=== PATIENT | female | born 1990 | race Caucasian/White ===

== ENCOUNTER 2017-02-23 15:10 | Emergency (ER) | payer MEDICAID ==
[~2017-02-23] VITALS: Ht 160 cm; Wt 54.4 kg
[~2017-02-23 15:10] MED LIST: ABILIFY10 MG PO; ADDERALL5 MG; AMOXICILLIN500 MG PO; ANAPROX DS550 MG PO; ATIVAN0.5 MG PO; ATIVAN1 MG PO; AUGMENTIN 875 M1 TA1 PO; BACTRIM DS 8001 TA1 PO; BENADRYL25 M1 PO; BENTYL10 MG PO; BIAXIN500 MG PO; BIRTH CONTROL1 EAC1 PO; BUSPAR5 MG PO; CIPRO250 MG PO; CIPRODEX 0.3%-7.5 ML OT; CIPROFLOXACIN500 MG PO; CLINDAMYCIN HC300 MG PO; CORDROL20 MG PO; CYCLOBENZAPRINE5 MG PO; DAYPRO600 M1 PO; DOXYCYCLINE100 M2 PO; FIORICET 325 MG1 TAB PO; FLAGYL500 MG PO; FLEXERIL10 MG PO; GEODON60 MG PO; GEODON80 MG; GEODON80 MG PO; HYDROCODONE BIT1 T11 PO; KEFLEX500 MG PO; LAMICTAL25 MG PO; LIDEX 0.05% CRE15 GM T; LIDEX0.05% T; LIDOCAINE VISC100 ML MM; MOTRIN800 MG PO; NAPROSYN500 MG PO; NKHM; NORCO 325 MG-51 TAB PO; PEPCID20 MG PO; PREDNICOT20 MG PO; PREV ADMIT HOME MEDS; PRILOSEC20 MG PO; PRILOSEC40 MG PO; PROTONIX40 MG PO; PROVENTIL0.09 MG/AC IH; REMERON15 MG PO; TORADOL10 MG PO; TRAMADOL HCL50 MG PO; TRAZODONE100 MG PO; TRIMOX500 MG PO; TYLENOL W/CODEI1 TA2 PO; ULTRAM50 MG PO; VALIUM10 MG PO; VALIUM2 MG PO; VICODIN 5/500 505 MG PO; VISTARIL50 MG PO; VOLTAREN50 M1 PO; VOLTAREN75 MG PO; XANAX0.25 MG; XANAX1 MG; XANAX1 MG PO; ZANTAC 150150 MG PO; ZITHROMAX Z PA250 MG PO; ZITHROMAX250 MG PO; ZOFRAN ODT4 MG PO; ZOFRAN ODT4 MG SL; ZOLOFT50 MG; ZYRTEC10 M1 PO; Zofran4 MG PO
[2017-02-23] MEDS ORDERED: TYLENOL WITH CO1 TA1 PO (15:29)
[2017-02-23] MEDS ORDERED: CLINDAMYCIN HC300 MG PO (15:29)
== END 2017-02-23 15:18 | disposition home or self-care (01) ==
LOC: ED 15:10
DX: K04.7 Periapical abscess without sinus (principal); F17.200 Nicotine dependence, unspecified, uncomplicated; Z88.0 Allergy status to penicillin; Z88.1 Allergy status to other antibiotic agents; Z88.6 Allergy status to analgesic agent; Z91.040 Latex allergy status

== ENCOUNTER 2017-05-13 14:16 | Emergency (ER) | payer MEDICAID ==
[~2017-05-13] VITALS: Ht 157.4 cm; Wt 54.4 kg
[~2017-05-13 14:16] MED LIST changes: +TYLENOL WITH CO1 TA1 PO
[2017-05-13] MEDS ORDERED: PERIDEX118 ML MM (14:54)
[2017-05-13] MEDS ORDERED: TYLENOL W/CODEI1 TA4 PO (15:12)
[2017-05-13] MEDS ORDERED: FLAGYL500 MG PO (15:12)
== END 2017-05-13 21:38 | disposition home or self-care (01) ==
LOC: ED 14:16
DX: K02.9 Dental caries, unspecified (principal); F17.200 Nicotine dependence, unspecified, uncomplicated; G89.29 Other chronic pain; K21.9 Gastro-esophageal reflux disease without esophagitis; Z88.0 Allergy status to penicillin; Z88.6 Allergy status to analgesic agent; Z88.1 Allergy status to other antibiotic agents; Z91.040 Latex allergy status

== ENCOUNTER 2017-07-25 19:51 | Emergency (ER) | payer MEDICAID ==
[~2017-07-25] VITALS: Ht 157.4 cm; Wt 54.4 kg
[~2017-07-25 19:51] MED LIST changes: +PERIDEX118 ML MM; +TYLENOL W/CODEI1 TA4 PO
[2017-07-25] MEDS ORDERED: CLINDAMYCIN HC300 MG PO (20:25)
== END 2017-07-25 20:43 | disposition home or self-care (01) ==
LOC: ED 19:51
DX: K04.7 Periapical abscess without sinus (principal); K08.89 Other specified disorders of teeth and supporting structures; F17.200 Nicotine dependence, unspecified, uncomplicated; Z88.0 Allergy status to penicillin; Z88.1 Allergy status to other antibiotic agents; Z88.5 Allergy status to narcotic agent; Z91.040 Latex allergy status

== ENCOUNTER 2017-12-20 09:56 | Emergency (ER) | payer MEDICAID ==
[~2017-12-20] VITALS: Ht 157.4 cm; Wt 59.9 kg
== END 2017-12-20 12:28 | disposition home or self-care (01) ==
LOC: ED 09:56
DX: S00.33XA Contusion of nose, initial encounter (principal); S09.8XXA Other specified injuries of head, initial encounter; Z88.0 Allergy status to penicillin; Z88.1 Allergy status to other antibiotic agents; Z91.040 Latex allergy status; Z88.6 Allergy status to analgesic agent; Z88.8 Allergy status to other drugs, medicaments and biological substances; Y04.0XXA Assault by unarmed brawl or fight, initial encounter; Y93.89 Activity, other specified; Y92.89 Other specified places as the place of occurrence of the external cause; Y99.8 Other external cause status

== ENCOUNTER 2018-01-17 00:04 | Emergency (ER) | payer MEDICAID ==
[~2018-01-17] VITALS: Ht 167.6 cm; Wt 65.8 kg
[2018-01-17 00:49] LABS: BASO # 0.1 10*3/uL (0.0-0.1); BASO % 0.6 % (0.0-1.0); EOS # 0.8 10*3/uL (0.0-0.4); EOS % 7.6 % (1.0-4.0); HEMOGLOBIN 15.3 g/dl (12.0-16.0); LYMPH % 36.8 % (27.0-41.0); MEAN CELL VOLUME 96.2 fl (81.0-99.0); MEAN CORPUSCULAR HGB 32.7 pg (27.0-31.0); MEAN PLATELET VOLUME 12.1 fl (9.6-12.3); MONO # 0.5 10*3/uL (0.1-1.0); MONO % 4.2 % (3.0-9.0); NEUT # 5.6 10*3/uL (2.3-7.9); NEUT % 50.7 % (47.0-73.0); PLATELET COUNT AUTOMATED 203 10*3/uL (130-400); RED BLOOD COUNT 4.68 10*6/uL (4.10-5.10); RED CELL DISTRI WIDTH 13.7 % (0-14.5)
[2018-01-17 00:56] LABS: ALBUMIN 3.7 gm/dl (3.1-4.5); ALKALINE PHOSPHATASE 46 U/L (45-117); B-hCG (QUALITATIVE) NEGATIVE (NEGATIVE); BUN 5 mg/dl (7-24); CHLORIDE 109 mmol/L (98-107); CPK 96 U/L (26-192); CREATININE 0.97 mg/dL (0.55-1.02); LIPASE 101 U/L (73-393); POTASSIUM 3.5 mmol/L (3.5-5.1); SGOT/AST 18 IU/L (3-35); SGPT/ALT 19 U/L (12-78); SODIUM 141 mmol/L (136-145); TOTAL PROTEIN 8.1 gm/dL (6.4-8.2)
[2018-01-17 00:57] LABS: TROPONIN I < 0.015 ng/ml (<0.045)
[2018-01-17 00:58] LABS: BILIRUBIN NEGATIVE (NEGATIVE); BLOOD NEGATIVE (NEGATIVE); CLARITY CLEAR (CLEAR); COLOR YELLOW (YELLOW); GLUCOSE NEGATIVE (NEGATIVE); KETONE NEGATIVE (NEGATIVE); LEUKO ESTERASE NEGATIVE (NEGATIVE); NITRITE NEGATIVE (NEGATIVE); PH 6.5 (5.0-9.0); SPECIFIC GRAVITY <= 1.005 (1.005-1.030); UROBILINOGEN 0.2 E.U./dl (0.2-1.0)
[2018-01-17 01:02] LABS: URINE AMPHETAMINES < 1000 (1000ng/ml); URINE BARBITURATES < 200 (200ng/ml); URINE BENZODIAZEPINES > 200 (200ng/ml); URINE CANNABINOIDS (THC) > 50 (50ng/ml); URINE COCAINE < 300 (300ng/ml); URINE METHADONE < 300 (300ng/ml); URINE OPIATES < 300 (300ng/ml); URINE PHENCYCLIDINE < 25 (25ng/ml)
[2018-01-17 01:05] LABS: BACTERIA TRACE; RBC 0-2 rbc/hpf (0-2); WBC 0-2 wbc/hpf (0-5)
== END 2018-01-17 05:31 | disposition home or self-care (01) ==
LOC: ED 00:04
PROVIDERS: Emergency Medicine Emergency Medical Services
DX: T42.4X1A Poisoning by benzodiazepines, accidental (unintentional), initial encounter (principal); G89.29 Other chronic pain; K21.9 Gastro-esophageal reflux disease without esophagitis; Y92.89 Other specified places as the place of occurrence of the external cause; Z88.0 Allergy status to penicillin; Z88.1 Allergy status to other antibiotic agents; Z88.5 Allergy status to narcotic agent; Z91.040 Latex allergy status

== ENCOUNTER 2018-04-04 09:34 | Emergency (ER) | payer SELFPAY ==
[~2018-04-04] VITALS: Ht 157.4 cm; Wt 63.5 kg
[2018-04-04] MEDS ORDERED: Nizoral 2%15 GM T (10:16)
== END 2018-04-04 10:30 | disposition home or self-care (01) ==
LOC: ED 09:34
DX: B35.4 Tinea corporis (principal); Z88.0 Allergy status to penicillin; Z88.1 Allergy status to other antibiotic agents; Z88.6 Allergy status to analgesic agent; Z91.040 Latex allergy status

== ENCOUNTER 2019-02-10 16:43 | Emergency (ER) | payer SELFPAY ==
[~2019-02-10] VITALS: Ht 157.4 cm; Wt 59.0 kg
[~2019-02-10 16:43] MED LIST changes: +Nizoral 2%15 GM T
[2019-05-16] MEDS ORDERED: PRENATAL TABLE1 EAC2 PO (09:33)
== END 2019-02-10 19:23 ==
LOC: ED 16:43
DX: T14.8XXA Other injury of unspecified body region, initial encounter (principal); M54.5 Low back pain; M25.572 Pain in left ankle and joints of left foot; M25.571 Pain in right ankle and joints of right foot; F17.200 Nicotine dependence, unspecified, uncomplicated; Z88.0 Allergy status to penicillin; Z88.1 Allergy status to other antibiotic agents; Z88.6 Allergy status to analgesic agent; Z91.040 Latex allergy status; W10.8XXA Fall (on) (from) other stairs and steps, initial encounter; Y93.01 Activity, walking, marching and hiking; Y92.89 Other specified places as the place of occurrence of the external cause; Y99.8 Other external cause status

== ENCOUNTER 2019-08-20 16:42 | Emergency (ER) | payer SELFPAY ==
[~2019-08-20] VITALS: Ht 157.4 cm; Wt 67.1 kg
[~2019-08-20 16:42] MED LIST changes: +PRENATAL TABLE1 EAC2 PO
[2019-08-20 17:51] LABS: BILIRUBIN NEGATIVE (NEGATIVE); BLOOD NEGATIVE (NEGATIVE); CLARITY CLEAR (CLEAR); COLOR YELLOW (YELLOW); GLUCOSE NEGATIVE (NEGATIVE); KETONE NEGATIVE (NEGATIVE); LEUKO ESTERASE NEGATIVE (NEGATIVE); NITRITE NEGATIVE (NEGATIVE); SPECIFIC GRAVITY 1.015 (1.005-1.030); UROBILINOGEN 0.2 E.U./dl (0.2-1.0)
[2019-08-20 18:12] LABS: EPITHELIAL CELLS 31-40
== END 2019-08-20 18:20 | disposition left against medical advice (07) ==
LOC: ED 16:42
PROVIDERS: Physician Assistant
DX: Z34.92 Encounter for supervision of normal pregnancy, unspecified, second trimester (principal); F32.9 Major depressive disorder, single episode, unspecified; F41.9 Anxiety disorder, unspecified; F17.200 Nicotine dependence, unspecified, uncomplicated; Z88.0 Allergy status to penicillin; Z88.1 Allergy status to other antibiotic agents; Z88.8 Allergy status to other drugs, medicaments and biological substances; Z88.6 Allergy status to analgesic agent; Z91.040 Latex allergy status; Z79.899 Other long term (current) drug therapy

== ENCOUNTER → 2019-10-25 | Outpatient (CLI) | payer MEDICAID | END | disposition home or self-care (01) | LOC: LAB 07:56 | DX: R73.02 Impaired glucose tolerance (oral) (principal) ==

== ENCOUNTER 2020-03-17 11:33 | Emergency (ER) | payer OTHER ==
[~2020-03-17] VITALS: Ht 157.4 cm; Wt 63.5 kg
== END 2020-03-17 14:26 | disposition home or self-care (01) ==
LOC: ED 11:33
DX: S20.212A Contusion of left front wall of thorax, initial encounter (principal); F17.200 Nicotine dependence, unspecified, uncomplicated; Z88.8 Allergy status to other drugs, medicaments and biological substances; Z91.040 Latex allergy status; Z79.899 Other long term (current) drug therapy; X58.XXXA Exposure to other specified factors, initial encounter; Y93.89 Activity, other specified; Y92.89 Other specified places as the place of occurrence of the external cause; Y99.8 Other external cause status

== ENCOUNTER 2020-06-17 19:54 | Emergency (ER) | payer OTHER ==
[~2020-06-17] VITALS: Ht 157.4 cm; Wt 62.6 kg
[2020-06-17] MEDS ORDERED: CLINDAMYCIN HC300 MG PO (20:42)
== END 2020-06-17 22:30 | disposition home or self-care (01) ==
LOC: ED 19:54
DX: S63.602A Unspecified sprain of left thumb, initial encounter (principal); K02.9 Dental caries, unspecified; Z88.0 Allergy status to penicillin; Z88.1 Allergy status to other antibiotic agents; Z88.6 Allergy status to analgesic agent; Z91.040 Latex allergy status; Z88.8 Allergy status to other drugs, medicaments and biological substances; W20.8XXA Other cause of strike by thrown, projected or falling object, initial encounter; Y93.89 Activity, other specified; Y92.89 Other specified places as the place of occurrence of the external cause; Y99.8 Other external cause status

== ENCOUNTER 2021-04-01 12:18 | Emergency (ER) | payer OTHER ==
[~2021-04-01] VITALS: Ht 157.4 cm; Wt 52.2 kg
[2021-04-01] MEDS ORDERED: SEPTDS PO (13:33)
[2021-04-01] MEDS ORDERED: HYDROCODONE-AC1 EAC1 PO (13:33)
[2021-04-01] MEDS ORDERED: CLINDAMYCIN HC300 MG PO (13:41)
== END 2021-04-01 14:18 | disposition home or self-care (01) ==
LOC: ED 12:18
DX: O99.711 Diseases of the skin and subcutaneous tissue complicating pregnancy, first trimester (principal); L72.3 Sebaceous cyst; Z88.0 Allergy status to penicillin; Z3A.01 Less than 8 weeks gestation of pregnancy; Z88.1 Allergy status to other antibiotic agents; Z88.6 Allergy status to analgesic agent; Z91.040 Latex allergy status; Z88.8 Allergy status to other drugs, medicaments and biological substances; Z79.2 Long term (current) use of antibiotics

== ENCOUNTER → 2021-04-18 | Outpatient (CLI) | payer OTHER ==
[~2021-04-18] MED LIST changes: +HYDROCODONE-AC1 EAC1 PO; +SEPTDS PO
== END | disposition home or self-care (01) ==
LOC: US 13:25
PROVIDERS: ATTEND Nurse Practitioner Women's Health
DX: O43.891 Other placental disorders, first trimester (principal); O34.81 Maternal care for other abnormalities of pelvic organs, first trimester; N83.11 Corpus luteum cyst of right ovary; Z3A.12 12 weeks gestation of pregnancy

== ENCOUNTER → 2021-06-12 | Outpatient (CLI) | payer OTHER ==
[2021-06-12 14:03] LABS: BASO # 0.1 10*3/uL (0.0-0.1); BASO % 0.4 % (0.0-1.0); EOS # 0.3 10*3/uL (0.0-0.4); EOS % 2.5 % (1.0-4.0); HEMATOCRIT 36.7 % (37.0-47.0); LYMPH # 2.8 10*3/uL (1.3-4.4); LYMPH % 23.9 % (27.0-41.0); MEAN CELL VOLUME 97.9 fl (81.0-99.0); MEAN CORPUSCULAR HGB 32.3 pg (27.0-31.0); MEAN PLATELET VOLUME 11.8 fl (9.6-12.3); MONO # 0.5 10*3/uL (0.1-1.0); MONO % 4.2 % (3.0-9.0); NEUT # 7.9 10*3/uL (2.3-7.9); NEUT % 68.3 % (47.0-73.0); PLATELET COUNT AUTOMATED 212 10*3/uL (130-400); RED BLOOD COUNT 3.75 10*6/uL (4.10-5.10); RED CELL DISTRI WIDTH 13.2 % (0-14.5); WHITE BLOOD COUNT 11.6 10*3/uL (4.8-10.8)
[2021-06-12 15:41] LABS: BILIRUBIN Negative (Negative); BLOOD Negative (Negative); CLARITY Clear (Clear); COLOR Yellow (Yellow); GLUCOSE Negative (Negative); KETONE Negative (Negative); LEUKO ESTERASE Negative (Negative); NITRITE Negative (Negative); SPECIFIC GRAVITY <= 1.005 (1.001-1.030); UROBILINOGEN 0.2 E.U./dl (0.0-1.0)
[2021-06-12 16:10] LABS: BACTERIA TRACE
[2021-06-13 08:08] LABS: HEPATITIS B SURFACE AG Negative (Negative)
[2021-06-13 17:07] LABS: VARICELLA-ZOSTER IGG 870 index (Immune >165)
== END | disposition home or self-care (01) ==
LOC: LAB 13:28
PROVIDERS: ATTEND Nurse Practitioner Women's Health
DX: Z34.81 Encounter for supervision of other normal pregnancy, first trimester (principal); Z3A.10 10 weeks gestation of pregnancy

== ENCOUNTER 2021-11-09 11:58 | Emergency (ER) | payer OTHER ==
[~2021-11-09] VITALS: Ht 157.4 cm; Wt 69.9 kg
[2021-11-09 12:53] LABS: BASO % 0.4 % (0.0-1.0); EOS # 0.2 10*3/uL (0.0-0.4); HEMATOCRIT 37.1 % (37.0-47.0); LYMPH # 1.7 10*3/uL (1.3-4.4); LYMPH % 15.4 % (27.0-41.0); MEAN CORPUSCULAR HGB 31.6 pg (27.0-31.0); MEAN PLATELET VOLUME 10.9 fl (9.6-12.3); MONO # 0.5 10*3/uL (0.1-1.0); MONO % 4.2 % (3.0-9.0); NEUT # 8.6 10*3/uL (2.3-7.9); NEUT % 77.7 % (47.0-73.0); PLATELET COUNT AUTOMATED 228 10*3/uL (130-400); RED BLOOD COUNT 3.99 10*6/uL (4.10-5.10); RED CELL DISTRI WIDTH 14.3 % (0-14.5)
[2021-11-09 13:09] LABS: ALBUMIN 2.8 gm/dl (3.1-4.5); ALKALINE PHOSPHATASE 112 U/L (45-117); BUN 7 mg/dl (7-24); CHLORIDE 109 mmol/L (98-107); CREATININE 0.69 mg/dL (0.55-1.02); POTASSIUM 3.7 mmol/L (3.5-5.1); SGOT/AST 19 IU/L (3-35); SGPT/ALT 19 U/L (12-78); SODIUM 139 mmol/L (136-145); TOTAL PROTEIN 7.1 gm/dL (6.4-8.2)
[2021-11-09 15:30] LABS: BILIRUBIN Negative (Negative); BLOOD 3+ (Negative); CLARITY Turbid (Clear); COLOR Red (Yellow); GLUCOSE Negative (Negative); KETONE Trace (Negative); LEUKO ESTERASE 3+ (Negative); NITRITE Negative (Negative); PH 5.5 (4.5-8.0); SPECIFIC GRAVITY 1.015 (1.001-1.030)
[2021-11-09 15:37] LABS: BACTERIA 2+; EPITHELIAL CELLS 0-2; MUCOUS TRACE; RBC TNTC rbc/hpf (0-2); WBC TNTC wbc/hpf (0-5)
== END 2021-11-09 15:47 | disposition home or self-care (01) ==
LOC: ED 11:58
PROVIDERS: Emergency Medicine; Physician Assistant
DX: O90.89 Other complications of the puerperium, not elsewhere classified (principal); N89.8 Other specified noninflammatory disorders of vagina; F17.200 Nicotine dependence, unspecified, uncomplicated; Z88.0 Allergy status to penicillin; Z88.1 Allergy status to other antibiotic agents; Z91.040 Latex allergy status; Z88.6 Allergy status to analgesic agent; Z88.8 Allergy status to other drugs, medicaments and biological substances

== ENCOUNTER 2022-04-15 08:05 | Emergency (ER) | payer OTHER ==
[~2022-04-15] VITALS: Ht 157.4 cm; Wt 59.0 kg
[2022-04-15] MEDS ORDERED: HYDROCODONE-AC1 EAC1 PO (08:32)
[2022-04-15] MEDS ORDERED: VIBRA-TAB100 MG PO (08:32)
== END 2022-04-15 09:10 | disposition home or self-care (01) ==
LOC: ED 08:05
DX: L02.214 Cutaneous abscess of groin (principal); Z88.0 Allergy status to penicillin; Z88.1 Allergy status to other antibiotic agents; Z91.040 Latex allergy status; Z88.8 Allergy status to other drugs, medicaments and biological substances

== ENCOUNTER 2022-06-12 11:17 | Emergency (ER) | payer OTHER ==
[~2022-06-12] VITALS: Wt 52.2 kg
[~2022-06-12 11:17] MED LIST changes: +VIBRA-TAB100 MG PO
== END 2022-06-12 13:45 | disposition left against medical advice (07) ==
LOC: ED 11:17
DX: R10.9 Unspecified abdominal pain (principal); Z53.21 Procedure and treatment not carried out due to patient leaving prior to being seen by health care provider

== ENCOUNTER 2023-06-29 14:36 | Emergency (ER) | payer MEDICAID ==
[~2023-06-29] VITALS: Ht 157.4 cm; Wt 61.2 kg
[2023-06-29] MEDS ORDERED: CLINDAMYCIN HC300 MG PO (16:50)
== END 2023-06-29 16:46 | disposition home or self-care (01) ==
LOC: ED 14:36
DX: K02.9 Dental caries, unspecified (principal); F41.9 Anxiety disorder, unspecified; K21.9 Gastro-esophageal reflux disease without esophagitis; Z88.0 Allergy status to penicillin; Z88.1 Allergy status to other antibiotic agents; Z88.6 Allergy status to analgesic agent; Z91.040 Latex allergy status; Z88.8 Allergy status to other drugs, medicaments and biological substances

== ENCOUNTER 2023-07-19 12:23 | Emergency (ER) | payer MEDICAID ==
[~2023-07-19] VITALS: Ht 154.9 cm; Wt 61.2 kg
[2023-07-19] MEDS ORDERED: ONDANSETRON4 MG SL (13:32)
[2023-07-19] MEDS ORDERED: CLINDAMYCIN HC300 MG PO (13:32)
== END 2023-07-19 13:50 | disposition home or self-care (01) ==
LOC: ED 12:23
DX: K04.7 Periapical abscess without sinus (principal); R51.9 Headache, unspecified; F41.9 Anxiety disorder, unspecified; F31.9 Bipolar disorder, unspecified; Z88.0 Allergy status to penicillin; Z88.1 Allergy status to other antibiotic agents; Z91.040 Latex allergy status; Z88.6 Allergy status to analgesic agent; Z88.8 Allergy status to other drugs, medicaments and biological substances; Z98.890 Other specified postprocedural states

== ENCOUNTER 2023-10-27 14:21 | Emergency (ER) | payer MEDICAID ==
[~2023-10-27] VITALS: Ht 154.9 cm; Wt 61.2 kg
[~2023-10-27 14:21] MED LIST changes: +ONDANSETRON4 MG SL
[2023-10-27 15:00] LABS: BASO # 0.1 10*3/uL (0.0-0.1); BASO % 1.3 % (0.0-1.0); EOS # 0.9 10*3/uL (0.0-0.4); EOS % 9.4 % (1.0-4.0); HEMATOCRIT 43.1 % (37.0-47.0); LYMPH # 4.4 10*3/uL (1.3-4.4); LYMPH % 48.5 % (27.0-41.0); MEAN CELL VOLUME 98.9 fl (81.0-99.0); MEAN CORPUSCULAR HGB 31.9 pg (27.0-31.0); MEAN CORPUSCULAR HGB CONC 32.3 g/dl (33.0-37.0); MEAN PLATELET VOLUME 10.7 fl (9.6-12.3); MONO # 0.6 10*3/uL (0.1-1.0); MONO % 6.1 % (3.0-9.0); NEUT # 3.2 10*3/uL (2.3-7.9); NEUT % 34.6 % (47.0-73.0); PLATELET COUNT AUTOMATED 243 10*3/uL (130-400); RED BLOOD COUNT 4.36 10*6/uL (4.10-5.10); RED CELL DISTRI WIDTH 13.7 % (0-14.5); WHITE BLOOD COUNT 9.2 10*3/uL (4.8-10.8)
[2023-10-27 15:01] LABS: BILIRUBIN Negative (Negative); BLOOD Negative (Negative); CLARITY Clear (Clear); COLOR Yellow (Yellow); GLUCOSE Negative (Negative); KETONE Trace (Negative); LEUKO ESTERASE Negative (Negative); NITRITE Negative (Negative)
[2023-10-27 15:32] LABS: MUCOUS 1+; WBC 0-2 wbc/hpf (0-5)
[2023-10-27 15:35] LABS: ALKALINE PHOSPHATASE 50 U/L (46-116); CHLORIDE 106 mmol/L (98-107); POTASSIUM 3.8 mmol/L (3.4-5.1); TOTAL PROTEIN 7.9 gm/dL (6.0-8.0)
[2023-10-27 15:36] LABS: BETA-HCG, QUANT < 3.0 mIU/mL (3-10); BUN < 5 mg/dl (9-23); SGPT/ALT < 7 U/L (5-49)
== END 2023-10-27 16:30 | disposition left against medical advice (07) ==
LOC: ED 14:21
PROVIDERS: Physician Assistant Medical
DX: Z32.00 Encounter for pregnancy test, result unknown (principal); F41.9 Anxiety disorder, unspecified; F31.9 Bipolar disorder, unspecified; R10.2 Pelvic and perineal pain; Z88.0 Allergy status to penicillin; Z88.1 Allergy status to other antibiotic agents; Z91.040 Latex allergy status; Z88.6 Allergy status to analgesic agent; Z88.8 Allergy status to other drugs, medicaments and biological substances; Z98.890 Other specified postprocedural states

== ENCOUNTER → 2024-03-23 | Outpatient (CLI) | payer MEDICAID ==
[2024-03-23 14:02] LABS: URINE AMPHETAMINES Negative (1000ng/ml); URINE BARBITURATES Negative (200ng/ml); URINE BENZODIAZEPINES Positive (200ng/ml); URINE CANNABINOIDS (THC) Positive (50ng/ml); URINE COCAINE Negative (300ng/ml); URINE METHADONE Negative (300ng/ml); URINE OPIATES Negative (300ng/ml); URINE PHENCYCLIDINE Negative (25ng/ml)
== END | disposition home or self-care (01) ==
LOC: LAB 12:19
PROVIDERS: ATTEND Registered Nurse
DX: F11.20 Opioid dependence, uncomplicated (principal)

== ENCOUNTER 2024-09-14 09:05 | Emergency (ER) | payer MEDICAID ==
[~2024-09-14] VITALS: Ht 157.4 cm
[2024-09-14] MEDS ORDERED: ZITHROMAX250 MG PO (09:28)
[2024-09-14] MEDS ORDERED: AZITHROMYCIN 250 MG TAB PO ONE (09:30)
== END 2024-09-14 09:45 | disposition home or self-care (01) ==
LOC: ED 09:05
DX: J02.0 Streptococcal pharyngitis (principal); H92.02 Otalgia, left ear; Z88.0 Allergy status to penicillin; Z88.1 Allergy status to other antibiotic agents; Z88.6 Allergy status to analgesic agent; Z91.040 Latex allergy status

== ENCOUNTER 2025-01-30 11:46 | Emergency (ER) | payer MEDICAID ==
[~2025-01-30] VITALS: Ht 157.4 cm; Wt 64.9 kg
[2025-01-30] MEDS ORDERED: ACETAMINOPHEN 325 MG TAB PO ONE (15:45)
== END 2025-01-30 15:50 | disposition home or self-care (01) ==
LOC: ED 11:46
DX: S62.305A Unspecified fracture of fourth metacarpal bone, left hand, initial encounter for closed fracture (principal); Z88.0 Allergy status to penicillin; Z88.1 Allergy status to other antibiotic agents; Z88.6 Allergy status to analgesic agent; Z91.040 Latex allergy status; Z88.8 Allergy status to other drugs, medicaments and biological substances; W01.0XXA Fall on same level from slipping, tripping and stumbling without subsequent striking against object, initial encounter; Y93.89 Activity, other specified; Y92.89 Other specified places as the place of occurrence of the external cause; Y99.8 Other external cause status